=== PATIENT | male | born 1970 | race Caucasian/White ===

== ENCOUNTER 2018-10-21 11:50 | Emergency (ER) | payer MEDICAID ==
[~2018-10-21] VITALS: Ht 172.7 cm; Wt 86.0 kg
[2018-10-21 11:57] VITALS: BP 128/80
[2018-10-21] MEDS ORDERED: DEXAMETHASONE 4 MG TABLET ONE (14:07)
[2018-10-21] MEDS ORDERED: DEXAMETHASONE 4 MG TABLET PO ONE (14:30)
== END 2018-10-21 14:15 | disposition home or self-care (01) ==
LOC: ED 12:30
DX: J18.9 Pneumonia, unspecified organism (principal)
CPT/HCPCS: 71046; 99283